=== PATIENT | male | born 1945 | race Caucasian/White ===

== ENCOUNTER → 2016-07-31 | Day surgery (SDC) | payer MEDICARE, OTHER ==
[~2016-07-31] MED LIST: BUPIVACAINE HCL PF 0.5% 10 ML VIAL ONE; BUPIVACAINE/EPINEPHRINE 0.25% PF 10 ML VIAL ONE; DEXAMETHASONE SOD PHOS 4 MG/ML VIAL ONE; LACTATED RINGER'S 1000 ML INJ 1,000 ML ONE; MIDAZOLAM HCL 2 MG/2 ML VIAL ONE; ONDANSETRON HCL 4 MG/2 ML VIAL IV PUSH ONE; PROPOFOL 200 MG/20 ML AMP IV ONE; ceFAZolin 2 GM PREMIX 50 ML ONE
--- NOTE | 2016-07-31 16:33 | TN ---
cc: MOHINI JOSEPH DENNIS B. 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 POSTOPERATIVE DIAGNOSIS: Left medial ankle nerve sheath tumor. PROCEDURE: Excision of left medial ankle nerve sheath tumor with neurolysis of left posterior tibial nerve. ANESTHESIA: General. ATTENDING SURGEON: Mohini Joseph MD. GAMEPLAY PROGRAMMER: Dr. Crenshaw ESTIMATED BLOOD LOSS: Less then 10 cc. FINDINGS: Approximately 1.2 cm circumferential benign appearing peripheral nerve sheath tumor appeared to be arising from the nerve sheath without direct involvement of the posterior tibial nerve. INDICATIONS FOR PROCEDURE: The patient is a 70 year old male with history of left foot and ankle pain. The patient was noted to have a palpable abnormality. Prior to evaluation this appeared to be a tumor in the tarsal canal, possibly causing tarsal compression syndrome. Dr. Crenshaw asked surgical oncology to evaluate the patient due to the mass, this was evaluated and MRI was reviewed and it was felt to be a benign tumor of the nerve sheath that could be resected based on symptomatology. The risks and benefits, alternatives to nerve resection was discussed with the patient and detailed prior to the procedure and the patient agreed to undergo the procedure. PROCEDURE: After informed consent was obtained. The patient was taken to the operating room, placed on supine and under general anesthesia. Dr. Crenshaw and myself were present for the entire procedure, however, my portion of the procedure was first. A tourniquet was placed, left upper extremity, the left foot and ankle was prepped and draped in sterile fashion. A time out was preformed. The tourniquet was then insufflated and we were able to samantha our planned incision which is a horizontal incision longitudinal with the tarsal canal. The incision was made with the 15-blade scalpel, Metzenbaum scissors as well as bovie electrocautery was used to dissect through the subcutaneous tissue, the superficial vein was divided with 3-0 Vicryl suture. I was then able to gently elevate the overlying ligament as we could identify the flexor retinaculum with the mobile tumor underneath. The flexor retinaculum was divided, they were debrided with approximately 1 to 1.5 cm tumor in the tarsal canal we were able to tract this upward with hemostats as well as with a retraction stitch and then just exposed the posterior tibial nerve which was superior and deep this. We used a peanut retractor as well as gentle resection with the Metzenbaum scissors to lyse the nerve off the tumor without stretching or dividing the nerve. The nerve would stimulate easily with some minimal compression with forceps. We basically used blunt capsular dissection to remove the tumor but all tumor and intact tumor capsule was removed. This was not oriented and was passed off for permanent section. It had excellent hemostasis and the nerve was intact and viable. Of note the tumor was large enough to take up almost the entire tarsal canal. At this point and time we turned the case over to Dr. Crenshaw to perform a partial tunnel release, please see his separate dictated note. Closure and bandage was preformed by Dr. Crenshaw. I was present and scrubbed for the above procedure. All counts were correct. No apparent complications. The patient tolerated the procedure well. MD ENRIQUE Deng/gaby /3:09 PM /3:20 PM JACEY
--- NOTE | 2016-07-31 16:56 | MP ---
cc: GENARO DONALDSON [facility] DATE OF SURGERY: 07/31/2016 PREOPERATIVE DIAGNOSIS: Left foot ankle soft tissue mass. Tarsal tunnel syndrome. POSTOPERATIVE DIAGNOSIS: Left foot ankle soft tissue mass. Tarsal tunnel syndrome. SURGEON: Dr. Nicolas Donaldson. REGISTERED MASSAGE THERAPIST: hvac controls technician. OPERATION: Excision deep mass within the tarsal tunnel per Dr. Cotton. Tarsal tunnel release per Dr. Donaldson. SPECIMEN: Deep mass sent for permanent pathology cell analysis. ESTIMATED BLOOD LOSS: Less than 30 mL COMPLICATIONS: None. ANESTHESIA: General, 10 cc of 0.25% Marcaine with epinephrine was infiltrated post wound closure block. DRAINS: None. TOURNIQUET TIME: 38 minutes at a setting of 215 mmHg. PLAN OF ACTIVITY: PACU, then DC home when stable per Same-Day Surgery criteria. JUSTIFICATION FOR PROCEDURE: The patient is a very pleasant 70 year-old male who presented to the office with tarsal tunnel-like symptoms. Clinically he had a mass that appeared to be within the tarsal tunnel. MRI verified a mass that appeared to be coming off the nerve sheath. Consultation then took place with surgical oncology. We devised a plan to move forward with excision of mass and then decompression of the tarsal tunnel. Risks and benefits were explained to the patient in great detail, permanent numbness, stiffness, need for more surgery at a later date, possible recurrence of mass. No guarantees were given or implied regarding the outcome. PROCEDURE IN DETAIL: Under mild sedation the patient is brought to the operating room, placed on the operating table in supine position. Following the induction of general anesthesia, local anesthesia was obtained about the hindfoot utilizing standard block fashion. The patient's foot was then scrubbed, prepped, and draped in usual aseptic fashion. The foot was elevated, exsanguinated and the previously placed mid calf tourniquet was inflated at [address] Cotton started with the incision down. The mass was excised, and I was consulted to take place. Once identifying the soft tissue planes, the medial and lateral plantar nerve was identified, deep to the laciniate ligament, the posterior tibial nerve was noted to be slightly fat flat, appeared to be slightly fibrotic but appeared to be intact. The distal branches, we decided not to dissect down into the abductor hallucis due to the mass being localized to what appeared to be within the medial plantar nerve, deep venous Bovie and ligation took place, superficial closure at the dermal layer took place utilizing Vicryl. The skin was closed utilizing nylon. Upon relieving the tourniquet there is a prompt hyperemic response to all digits without any delayed capillary fill time. The patient was then positioned within a well-padded Eason compressive dressing and posterior splint, transferred from OR to PACU with all vital signs stable with capillary fill time within normal limits. The patient is permitted ice, elevate. He will non-weightbear. He will follow up within one weeks. SUSAN Thao/CASSI /2:46 PM /4:39 PM
== END | disposition home or self-care (01) ==
LOC: ESDC 11:50
PROVIDERS: ATTEND Podiatrist Foot & Ankle Surgery
DX: D21.22 Benign neoplasm of connective and other soft tissue of left lower limb, including hip (principal); G57.52 Tarsal tunnel syndrome, left lower limb
CPT/HCPCS: 00400; 01470; 27618; 28035; 88305; J0690; J2250; J2405; J3010; J7120; 88311; J1100